=== PATIENT | female | born 1965 | race Caucasian/White ===

== ENCOUNTER 2017-12-14 07:47 | Day surgery (SDC) | payer OTHER ==
[2017-12-14] MEDS ORDERED: PROPOFOL 20 ML (09:36)
[2017-12-14] MEDS ORDERED: CEFAZOLIN 1 GM INJ (09:36)
[2017-12-14] MEDS ORDERED: LIDOCAINE 2% (SDV) 5 ML INJ (09:36)
[2017-12-14] MEDS ORDERED: MEPERIDINE 100 MG INJ (09:37)
[2017-12-14] MEDS ORDERED: METOCLOPRAMIDE 10 MG INJ (09:37)
[2017-12-14] MEDS ORDERED: ONDANSETRON 4 MG INJ (09:37)
[2017-12-14] MEDS: CEFAZOLIN 2 GM/50 ML (PMX) 50 ML IVPB (09:53)
[2017-12-14] MEDS ORDERED: DIPHENHYDRAMINE 50 MG INJ IV (10:00)
[2017-12-14] MEDS ORDERED: LABETALOL HCL 20MG INJ IV (10:00)
[2017-12-14] MEDS ORDERED: FENTAnyl 50 MCG/ML VIAL IV ×2 (10:00)
[2017-12-14] MEDS ORDERED: METOCLOPRAMIDE 10 MG INJ IV (10:00)
[2017-12-14] MEDS ORDERED: hydrALAzine 20 MG INJ IV (10:00)
[2017-12-14] MEDS ORDERED: OXYCODONE/ACETAMINOPHEN (5/325) TAB PO ×2 (10:00)
[2017-12-14] MEDS ORDERED: MIDAZOLAM 1 MG/ML 2 ML INJ IV (10:00)
[2017-12-14] MEDS ORDERED: EPHEDrine SULFATE 50 MG/5 ML SYG IV (10:00)
[2017-12-14] MEDS ORDERED: ATROPINE 1 MG/10 ML SYRINGE (10:15)
[2017-12-14] MEDS ORDERED: OXYTOCIN 10 UNIT INJ (10:40)
[2017-12-14] MEDS: FENTAnyl 50 MCG/ML VIAL IV (11:25)
[2017-12-14] MEDS: ONDANSETRON 4 MG INJ IV (11:25)
[2017-12-14] MEDS: KETOROLAC 30 MG INJ IV (11:25)
[2017-12-14] MEDS: MEPERIDINE 25 MG INJ IV (11:26)
== END 2017-12-14 12:56 | disposition home or self-care (01) ==
LOC: SDS 07:47
DX: N85.00 Endometrial hyperplasia, unspecified (principal); D25.9 Leiomyoma of uterus, unspecified; I10 Essential (primary) hypertension; E78.5 Hyperlipidemia, unspecified; E66.01 Morbid (severe) obesity due to excess calories; Z68.35 Body mass index [BMI] 35.0-35.9, adult
CPT/HCPCS: 58558; 88305; 88341; 88342

== ENCOUNTER 2018-01-18 10:43 | Emergency (ER) | payer OTHER ==
[2018-01-18] MEDS: FAMOTIDINE 20 MG INJ IV (10:58)
[2018-01-18] MEDS: METHYLPREDNISOLONE 125 MG INJ IV (10:58)
[2018-01-18] MEDS: DIPHENHYDRAMINE 50 MG INJ IV (10:58)
[2018-01-18] MEDS: EPINEPHrine 1 MG INJ IM (11:00)
== END 2018-01-18 13:48 | disposition home or self-care (01) ==
LOC: E/R 10:43
DX: T78.3XXA Angioneurotic edema, initial encounter (principal); I10 Essential (primary) hypertension
CPT/HCPCS: 96372; 96374; 96375; 99284-25

== ENCOUNTER 2018-01-24 10:39 | Emergency (ER) | payer OTHER ==
[2018-01-24 12:09] LABS: ADD MAN DIFF? NO
[2018-01-24 12:18] LABS: BASOPHIL # 0.1 10^3/ul (0.0-0.1); BASOPHILS % 0.5 % (0.0-2.0); EOSINOPHILS # 0.2 10^3/ul (0.0-0.5); EOSINOPHILS % 1.8 % (0.0-7.0); HEMATOCRIT 42.5 % (37.0-47.0); HEMOGLOBIN 13.9 g/dl (12.0-16.0); LYMPHOCYTES # 2.7 10^3/ul (0.8-2.9); LYMPHOCYTES % 27.7 % (15.0-51.0); MEAN CORPUSCULAR HEMOGLOBIN 26.3 pg (29.0-33.0); MEAN CORPUSCULAR HGB CONC 32.7 g/dl (32.0-37.0); MEAN CORPUSCULAR VOLUME 80.3 fl (82.0-101.0); MONOCYTE # 0.7 10^3/ul (0.3-0.9); MONOCYTES % 7.1 % (0.0-11.0); NEUTROPHILS % 62.3 % (39.0-77.0); PLATELET COUNT 293 10^3/UL (140-415); RED BLOOD COUNT 5.29 10^6/ul (4.20-5.40); RED CELL DISTRIBUTION WIDTH 13.3 % (11.5-14.5)
[2018-01-24 12:18] LABS: WHITE BLOOD COUNT 9.6 10^3/ul (4.8-10.8)
[2018-01-24] MEDS: SOD CHLORIDE 0.9% 1,000 ML IV (12:23)
[2018-01-24 12:43] LABS: ANION GAP 16 (8-16); BLOOD UREA NITROGEN 10 mg/dl (7-20); CALCIUM 9.2 mg/dl (8.4-10.2); CARBON DIOXIDE 25 mmol/L (21-31); CHLORIDE 104 mmol/L (97-110); CREATININE 0.78 mg/dl (0.44-1.00); GLUCOSE 101 mg/dl (70-220); POTASSIUM 3.5 mmol/L (3.5-5.1); SODIUM 141 mmol/L (135-144)
[2018-01-24 12:44] LABS: MAGNESIUM 1.9 mg/dl (1.7-2.5)
[2018-01-24 12:51] LABS: TROPONIN-I < 0.012 ng/ml (0.000-0.120)
== END 2018-01-24 13:23 | disposition home or self-care (01) ==
LOC: E/R 10:39
DX: R00.2 Palpitations (principal); I10 Essential (primary) hypertension
CPT/HCPCS: 36415; 71045; 80048; 83735; 84484; 85025; 93005; 99285-25